=== PATIENT | female | born 1950 | race Caucasian/White ===

== ENCOUNTER → 2021-02-13 17:43 | Outpatient (CLI) | payer OTHER, SELFPAY ==
[2021-02-13 18:37] LABS: COVID19 -Nasal RAPID Negative (Negative)
== END ==
PROVIDERS: PCP Family Medicine; Visit Provider Nurse Practitioner
DX: R52 Pain, unspecified (principal); R53.83 Other fatigue; Z20.822 Contact with and (suspected) exposure to COVID-19
CPT/HCPCS: 87635

== ENCOUNTER → 2022-02-04 10:28 | Outpatient (CLI) | payer OTHER, SELFPAY ==
--- NOTE | 2022-02-04 10:33 | DI.MG.S_ITS ---
BILATERAL DIGITAL SCREENING MAMMOGRAM 3D/2D WITH CAD: 02/04/2022 CLINICAL: Routine screening. Comparison is made to exams dated: 07/02/2017 mammogram, 10/19/2005 mammogram, and 01/08/2004 mammogram - [facility]. Both breasts are heterogeneously dense, which may obscure small masses (category c / 51-75% glandular tissue). Current study was also evaluated with a Computer Aided Detection (CAD) system. No significant masses, calcifications, or other findings are seen in either breast. There has been no significant interval change. IMPRESSION: NEGATIVE There is no mammographic evidence of malignancy. A 1 year screening mammogram is recommended. Based on the Tyrer Cuzick model (a risk assessment model) the patient's lifetime risk is 5.8% and her 10 year risk is 4.3%. According to the ACR, ACS, and NCCN guidelines, an annual breast MRI exam along with mammogram is recommended if the patient's lifetime risk is 20% or greater. This exam was interpreted at Station ID: [id number]. NOTE: For mammograms, a report in lay terms will be sent to the patient. Approximately 15% of breast malignancies will not be visualized mammographically. In the management of a palpable breast mass, a negative mammogram must not discourage biopsy of a clinically suspicious lesion. Electronically Signed By: Juan Francisco Mehta M.D., jr/jairo:02/04/2022 12:42:53 letter sent: Normal Exam ACR BI-RADS Category 1: Negative [id number]
== END ==
PROVIDERS: PCP Family Medicine; Referring Provider Family Medicine; Visit Provider Family Medicine
DX: Z12.31 Encounter for screening mammogram for malignant neoplasm of breast (principal)
CPT/HCPCS: 77063; 77067

== ENCOUNTER → 2022-04-01 16:57 | Outpatient (CLI) | payer OTHER, SELFPAY ==
--- NOTE | 2022-04-01 16:59 | DI.RAD.S_ITS ---
PROCEDURE: XR KNEE RT 3V INDICATIONS: bilateral knee pain TECHNIQUE: 3 views of the knee were acquired. COMPARISON: [facility], , KNEE 3V RIGHT, 08/29/2015, 10:44. FINDINGS: Bones: No fractures or dislocations. Moderate tricompartmental osteoarthritis is seen most notably in medial femoral tibial compartment. No suspicious bony lesions. Soft tissues: No joint effusion. No suspicious soft tissue calcifications. IMPRESSION: Moderate tricompartmental osteoarthritis. No fracture or dislocation. No significant joint effusion. Dictated by: Rishi Godwin M.D. on 04/02/2022 at 8:21 Approved by: Rishi Godwin M.D. on 04/02/2022 at 8:28
--- NOTE | 2022-04-01 16:59 | DI.RAD.S_ITS ---
PROCEDURE: XR KNEE LT 3V INDICATIONS: bilateral knee pain TECHNIQUE: 3 views of the knee were acquired. COMPARISON: [facility], , KNEE 3V RIGHT, 08/29/2015, 10:44. FINDINGS: Bones: No fractures or dislocations. Jsct-df-bszzoykf tricompartmental osteoarthritis is seen most notably in medial femoral tibial compartment with joint space narrowing, subchondral sclerosis and marginal osteophyte formation. No suspicious bony lesions. Soft tissues: Small joint effusion. No suspicious soft tissue calcifications. IMPRESSION: Twee-hv-htcreucc tricompartmental osteoarthritis and small joint effusion. No fracture or dislocation. Dictated by: Rishi Godwin M.D. on 04/02/2022 at 8:28 Approved by: Rishi Godwin M.D. on 04/02/2022 at 8:28
== END ==
PROVIDERS: PCP Family Medicine; Referring Provider Family Medicine; Visit Provider Family Medicine
DX: M25.561 Pain in right knee (principal); M25.562 Pain in left knee; M25.462 Effusion, left knee; M17.0 Bilateral primary osteoarthritis of knee; G89.29 Other chronic pain
CPT/HCPCS: 73562

== ENCOUNTER → 2022-07-17 08:28 | Outpatient (CLI) | payer OTHER, SELFPAY ==
[2022-07-17 09:03] LABS: Add Manual Diff / Slide Review NO; Basophils Absolute Auto 0 /uL (0-100); Basophils Percent Auto 0.9 % (0-2); Eosinophils Absolute Auto 300 /uL (0-450); Eosinophils Percent Auto 8.4 % (2-4); Hematocrit 39.9 % (36-46); Hemoglobin 13.4 g/dL (12.0-16.0); Lymphocytes Absolute Auto 1500 /uL (1100-4500); Lymphocytes Percent Auto 39.4 % (25-40); Mean Corpuscular HGB Conc 33.5 % (30-36); Mean Corpuscular Hemoglobin 30.7 PG (26-34); Mean Corpuscular Volume 91.8 fL (80-100); Monocytes Absolute Auto 400 /uL (0-900); Neutrophils Absolute Auto 1600 /uL (1500-7000); Neutrophils Percent Auto 41.3 % (50-75); Platelet Count 238 X10^3/uL (150-400); Red Blood Cell Count 4.34 X10^6/uL (4.0-5.2); Red Cell Distribution Width 13.2 % (11.6-14.8); White Blood Cell Count 3.9 X10^3/uL (4.5-11.0)
[2022-07-17 09:46] LABS: Alanine Aminotransferase 17 IU/L (<35); Albumin Globulin Ratio 1.3 (1.0-2.8); Alkaline Phosphatase 73 U/L (38-126); Aspartate Aminotransferase 24 IU/L (14-36); BUN Creatinine Ratio 22.2 (6-22); Bilirubin Total 0.5 mg/dL (0.2-1.3); Blood Urea Nitrogen 14 mg/dL (7-17); Calcium 8.6 mg/dL (8.4-10.2); Carbon Dioxide 30 mmol/L (22-32); Chloride 102 mmol/L (98-107); Cholesterol 213 mg/dL (140-199); Estimated Glomerular Filt Rate > 60 mL/min (>60); Glucose 99 mg/dL (80-110); HDL Cholesterol 61 mg/dL (40-60); HEMOLYSIS < 15 (0-50); LDL Cholesterol Calculated 141 mg/dL (<100); Potassium 4.1 mmol/L (3.4-5.1); Sodium 140 mmol/L (137-145); Triglycerides 55 mg/dL (35-150)
[2022-07-21 16:20] LABS: Fecal Immunochemical Test Negative (Negative)
== END ==
PROVIDERS: PCP Family Medicine; Referring Provider Family Medicine; Visit Provider Family Medicine
DX: E78.5 Hyperlipidemia, unspecified (principal); Z12.11 Encounter for screening for malignant neoplasm of colon
CPT/HCPCS: 36415; 80053; 80061; 82274; 85025

== ENCOUNTER → 2023-03-11 16:44 | Outpatient (CLI) | payer OTHER, SELFPAY ==
[2023-03-11 17:08] LABS: Add Manual Diff / Slide Review NO; Basophils Absolute Auto 0 /uL (0-100); Basophils Percent Auto 0.6 % (0-2); Eosinophils Absolute Auto 300 /uL (0-450); Eosinophils Percent Auto 4.7 % (2-4); Hematocrit 36.5 % (36-46); Hemoglobin 12.7 g/dL (12.0-16.0); Lymphocytes Absolute Auto 1900 /uL (1100-4500); Lymphocytes Percent Auto 30.4 % (25-40); Mean Corpuscular HGB Conc 34.7 % (30-36); Mean Corpuscular Hemoglobin 32.2 PG (26-34); Mean Corpuscular Volume 92.9 fL (80-100); Monocytes Absolute Auto 500 /uL (0-900); Monocytes Percent Auto 7.5 % (3-14); Neutrophils Absolute Auto 3500 /uL (1500-7000); Neutrophils Percent Auto 56.8 % (50-75); Platelet Count 248 X10^3/uL (150-400); Red Blood Cell Count 3.93 X10^6/uL (4.0-5.2); Red Cell Distribution Width 13.8 % (11.6-14.8); White Blood Cell Count 6.2 X10^3/uL (4.5-11.0)
[2023-03-11 18:14] LABS: BUN Creatinine Ratio 33.3 (6-22); Blood Urea Nitrogen 24 mg/dL (7-17); Calcium 8.9 mg/dL (8.4-10.2); Carbon Dioxide 29 mmol/L (22-32); Chloride 104 mmol/L (98-107); Estimated Glomerular Filt Rate > 60 mL/min (>60); Glucose 94 mg/dL (80-110); HEMOLYSIS < 15 (0-50); Potassium 4.3 mmol/L (3.4-5.1); Sodium 138 mmol/L (137-145)
== END ==
PROVIDERS: PCP Family Medicine; Referring Provider Orthopaedic Surgery Adult Reconstructive Orthopaedic Surgery; Visit Provider Orthopaedic Surgery Adult Reconstructive Orthopaedic Surgery
DX: R73.9 Hyperglycemia, unspecified (principal); Z01.812 Encounter for preprocedural laboratory examination; Z01.818 Encounter for other preprocedural examination
CPT/HCPCS: 36415; 80048; 83036; 85025; 93005

== ENCOUNTER 2023-04-15 11:32 | Day surgery (SDC) | payer OTHER, SELFPAY ==
[2023-04-06 12:43] VITALS: BMI 20.2
[2023-04-15] VITALS (7 sets, daily range): BP systolic 103–142; BP diastolic 51–71; PULSE 62–67; RESP 12–17; TEMP 35.9–36.5; O2SAT 98–99; BMI 20.5
[2023-04-15] MEDS: MELOXICAM 7.5 MG TABLET PO (11:53)
--- NOTE | 2023-04-15 13:27 | PM.PREOP ---
Pre-operative Note Interval Note History & Physical reviewed/Exam performed by Physician: Yes Changes to H&P: No
--- NOTE | 2023-04-15 14:00 | DI.RAD.S_ITS ---
PROCEDURE: XR KNEE LT 1TO2V INDICATIONS: LEFT TOTAL KNEE TECHNIQUE: 2 view(s) of the knee acquired. COMPARISON: [facility] [place], CR, XR BONE LENGTH SCANOGRAM, 03/16/2023, 10:17. FINDINGS: Bones: Patient is status post knee joint arthroplasty. Hardware components are in expected positions. Visualized bony structures are intact. Soft tissues: Overlying postoperative changes are noted. IMPRESSION: Total knee arthroplasty with expected postsurgical change. Dictated by: Ruba Engle M.D. on 04/15/2023 at 17:17 Approved by: Ruba Engle M.D. on 04/15/2023 at 17:17
[2023-04-15] MEDS: CEFAZOLIN 2 GM/100 ML PREMIX 100 ML IV (14:15)
[2023-04-15] MEDS: TRANEXAMIC ACID 1,000 MG VIAL 1000 MG INJ (14:20)
[2023-04-15] MEDS: ROPIVACAINE/EPI/CLONIDINE/KET 50 ML SYRINGE INJ (14:30)
--- NOTE | 2023-04-15 14:36 | SUR.OPER ---
Supine on padded OR bed. Pillow under head, arms secured on padded armboards <90 degree abduction. Safety belt across torso. Non-operative leg secured with tape over blanket over lower leg. Operative leg secured in Trino positioner. Foam padded brace at thigh of operative leg.
--- NOTE | 2023-04-15 16:41 | P.OP_ITS ---
Operative Date/Time/Diagnoses Date of procedure: 04/15/23 Pre-op diagnosis: Left knee arthritis Post-op diagnosis: same Procedure & Clinicians Procedure: Left total knee arthroplasty Same procedure as scheduled: Yes Surgeon: Connor Ambrose Type Bar And Segment Assembler: Tay Peralta Anesthesia Type: Spinal, Sedation and Local Operative Notes Prosthetic devices, grafts, tissues, transplants, or devices: Perez 8 Narrow CR femur, D tibia, 13 MC polyetheylene, unresurfaced patella Estimated Blood Loss (mL): 150 Tourniquet time (min): 64 Procedure in detail: This 72-year-old female was seen in clinic and diagnosed with left knee arthritis arthritis. Risks and benefits of operative versus nonoperative management of his arthritis were discussed at length. She wished to proceed with surgery in the form of a total knee arthroplasty. She was met in the preoperative holding area the day of surgery. All questions were answered and risks and benefits were again discussed. Informed consent was signed. The surgical site was marked. She was brought back to the operating room and placed supine on the operating table. Spinal anesthesia was utilized. Tay Peralta was present throughout the entire procedure and his assistance was necessary for room set up, soft tissue retraction, wound closure. Without him the surgery would not have been possible. A time-out procedure was performed. Tranexamic acid and Ancef were administered prior to incision. Tourniquet was inflated and a incision was made centered over the patella and the medial 3rd of the tibial tubercle. The soft tissues were dissected and flaps were elevated. A medial parapatellar arthrotomy was utilized to gain access to the joint. An initial medial release was performed. The patella was everted and a lateral facetectomy was used to encourage appropriate tracking. Osteophytes around the periphery of the patella were removed. A limited lateral release was performed off of the lateral edge. The soft tissue over the anterior aspect of the distal femoral shaft was released to expose the notch point and left in place. Retractors were placed around the femur and the femur was brought into flexion. An intramedullary drill was used in an intramedullary guide was introduced in order to obtain mechanical axis alignment. The distal femoral cutting jig was set to 5? and a +0 cut was planned. The Ryan wing was used to check to ensure appropriate positioning of that cut. The cut was made and the saw was rerun over the sclerotic lateral cortex. The jig and pins were removed and the cruciate ligaments were released. The knee was hyperflexed and externally rotated to expose the tibia. Retractors were placed and the diaphysis of the tibia was accessed with an intramedullary guide. A intramedullary vasu was placed down the tibia and used to gauge a mechanical axis resection with the corresponding tibial slope for a medial congruent polyethylene. A 2 mm resection was planned off of the medial side. This was then shifted by 2 mm to give me a 4 mm resection. This was pinned in place and retractors were placed around the tibia protecting the MCL, popliteus, and patellar tendon. The tibia was cut and appeared to have resulted in minimal bone resection so I resected an additional 2 mm. A soft tissue tensioner was used to gauge the symmetry of the extension gap. This demonstrated tightness medially. I therefore placed the tibia back into flexion and exposed the posterior medial tibial plateau. I performed a posterior medial release. I returned to extension and reintroduced the tensioner. I found that it was now appropriately balanced between medial and lateral. I used a 12 mm spacer block and found that this fit appropriately. I therefore planned to perform a 12 mm flexion gap resection. Coming to flexion I introduced the measured resection guide for a 3 degree external rotation cut and marked this with a marker. I then used the soft tissue tensioner to apply equal tension to the medial and lateral sides and found that this gave me a reading of approximately 4? external rotation. I therefore sized the femur based off of this external rotation so that I would have a 12 mm flexion gap. I pinned it in place and sized it and found that a size 6 was appropriate. I placed that 4 in 1 block with threaded headed pins and checked the notch point with an Ryan wing. I was satisfied. I cut the anterior and posterior cortices as well as the chamfers. The 4 in 1 block and all retractors were removed. I exposed the tibia and sized it for a size D left-sided tibial tray. I placed the corresponding trials to the cuts I had made and trial. I found that it had full extension, appropriate medial to lateral laxity in extension, good stability in flexion, and minimal lift-off with external and internal rotation in flexion. Being satisfied with this trialing I then moved towards cementation. The tibia and femur were copiously washed. Bone plugs were placed in the femur and tibia. The tibia had a lap inserted down the canal. I placed cement down the tibia and on the cut tibial surface after drying it with a lap. I placed the tibial component and impacted it twice, removing cement in between each round of impaction. I then again washed the femur, placed cement on the femur including the posterior condyles, and inserted the femoral component. I used a 12 mm trial and brought the knee into full extension and applied axial pressure while the cement dried. While the cement was drying I injected a dilute mixture of ropivacaine epinephrine clonidine and Toradol throughout the wound including performing a adductor canal block distally in the femur. I also put a dilute mixture of Betadine and peroxide into the soft tissues and allowed it to soak for 3 minutes. After cement was dry the tourniquet was let down and hemostasis was achieved. I trialed with the 12 mm component and found it to be slightly loose in flexion. Therefore inserted the 13 mm Debra. When trialing this I found it to have appropriate patellar tracking, extension flexion balancing, coronal plane balancing, and passive knee range of motion. Being satisfied with this I i nserted a 13 mm medial congruent polyethylene. This was locked in place into the dovetail in the tibial component. I inspected for excess dried cement and removed some with an osteotome. I closed the wound using a combination of 1 Vicryl to close the apex of the arthrotomy, interrupted 1. Vicryl in the arthrotomy, a double-armed 2. Stratafix in the arthrotomy, and Stratafix and Monocryl in the subcutaneous tissues and skin. Dermabond and an Aquacel dressing were applied. The patient was transferred off the operating room table and brought to the PACU on a stretcher. Post-operative Plan for aftercare: Weightbearing as tolerated Aspirin 81 mg twice per day for VTE prophylaxis Discharge home likely tomorrow morning
[2023-04-15] MEDS: IBUPROFEN 600 MG TABLET PO (17:15)
[2023-04-15] MEDS: ACETAMINOPHEN 325 MG TABLET 650 MG PO (17:16)
[2023-04-15] MEDS: LACTATED RINGERS 1,000 ML 100 ML IV (17:17)
--- NOTE | 2023-04-15 18:20 | PM.DS.1 ---
History of Present Illness History of Present Illness Date Patient Seen: 04/15/23 Chief complaint: Left TKA *OPB* Narrative: Patient seen postop following primary total knee. Reports minimal pain. Wants to go home. Ambulated approximately 200 feet from room 211 out to the stairs, up and down 3 steps, and back to room 211. I walked with her with a gait belt and provided zero assistance. I counseled her on using her right leg when going up and down stairs and discussed her plans for getting up and down the stairs to enter her house with her and her family. Discharge Providers Provider Discharge Date: 04/15/23 Primary care physician: Tay Peoples DO Consults: 04/06/23 13:35 Consult to Anesthesiology Routine Comment: Consulting Provider: Anesthesiologist Reason for consultation: PAC courtesy re: Abnormal pre-op EKG 04/15/23 06:00 Consult to Anesthesiology Routine Comment: Consulting Provider: Anesthesiologist Reason for consultation: Regional block for post operative pain control 04/15/23 16:40 Consult to Discharge Planning Routine Comment: Consult to Physical Therapy Evaluate & Treat Comment: Physician Instructions: postop TKA protocol Discharge provider: Connor Ambrose MD Summary Hospital Course Discharge Diagnosis: Status post left total knee Hospital Course: Ambulated without assistance including up and down 3 stairs following primary total knee. Voiding. Pain controlled. Mentating normally. Time Spent with Patient Time spent: Greater than 30 minutes Exam Vital Signs (past 8 hours): - 04/15/23 12:06 04/15/23 16:10 04/15/23 16:16 Temperature 97.7 F 97.2 F L 97.2 F L Pulse Rate 67 62 65 Respiratory Rate 17 15 15 Blood Pressure 142/71 H 114/51 L 106/57 L Pulse Oximetry 99 99 98 Oxygen Delivery Method Room Air Room Air Room Air Oxygen Flow Rate 04/15/23 16:22 04/15/23 16:23 04/15/23 16:28 Temperature 97.3 F L 97.1 F L Pulse Rate 64 64 Respiratory Rate 13 12 Blood Pressure 114/53 L 103/52 L Pulse Oximetry 99 99 Oxygen Delivery Method Room Air Room Air Oxygen Flow Rate 04/15/23 16:45 Temperature 96.7 F L Pulse Rate 63 Respiratory Rate 16 Blood Pressure 119/58 L Pulse Oximetry 98 Oxygen Delivery Method Oxygen Flow Rate 0 Oxygen Delivery Method Room Air Oxygen Flow Rate 0 Narrative Exam Narrative: LLE: Dressing CDI. Flexes/extends hallux+ankle. Toes WWP. Fires quad. ROM 0-70 Objective Imaging left knee xray: My impression: Appropriately positioned total knee PFSH Medical History (Updated 04/06/23 @ 13:09 by Amber Charles RN) Osteoarthritis UTI (urinary tract infection) (~04/04/23) Hx of ectopic Somatic dysfunction of lower extremity Sun-damaged skin Hyperlipidemia Chronic thumb pain, bilateral Bilateral knee pain Surgical History (Updated 04/06/23 @ 13:09 by Amber Charles RN) Hx of blepharoplasty Hx of varicose vein stripping Social History household members: none Smoking Status: Never smoker alcohol intake: current Discharge Assessment & Plan Assessment and Plan Assessment: Status post left total knee Plan of Treatment: DC home WBAT ASA 81 BID Followup two weeks for wound check Discharge Plan Discharge Plan Patient Disposition: Home Provider Discharge Comment: Personally completed stair training with patient. Ambulated approximately 200 feet down the whaley and back and walked up 3 steps and back down while I walked with her with a gait belt. I did not assist her at any point in the process. Detailed discharge instructions have previously been provided in the patient's joints booklet. Discharge orders & Medications Discharge Orders: Discharge (Order); Ordered 04/15/23 Ordered By: Connor Ambrose Prescriptions: New meloxicam 15 mg tablet 15 mg PO DAILY 30 Days Qty: 30 0RF aspirin 81 mg capsule 81 mg PO BID 45 Days Qty: 90 0RF acetaminophen 500 mg tablet 1,000 mg PO Q8HR 45 Days Qty: 240 0RF gabapentin 300 mg capsule 300 mg PO TID PRN (Reason: Nerve pain) 30 Days Qty: 90 0RF Discontinued acetaminophen 500 mg Tablet 1,000 mg PO DAILY PRN (Reason: Pain) ibuprofen 200 mg Tablet 200 mg PO Q6H PRN (Reason: Pain) Follow up/Referrals: Connor Ambrose MD [Physician] - Tay Peoples DO [Primary Care Provider] - Diet/Activity/Treatments Diet: Diet as Tolerated Cold/Heat Therapy: Maintain ice on surgical site Skin/Wound/Dressing Care Dressing: Maintain dressing until followup Visit Report/Discharge Packet Instructions: DI for Knee Replacement, DI for Prescription Opioid Use Stand Alone Forms: Patient Portal/API Discharge Data Primary Care Provider: Tay Peoples Attending Provider: Connor Ambrose VTE Deep Vein Thrombosis/Pulmonary Embolism Present on Admission: No
--- NOTE | 2023-04-15 18:34 | PC.NURSE ---
Assess- Patient is being discharged home, she has worked with , ambulating in the halls and doing stairs. She was medicated with ibuprofen and tylenol for a pain of 5/10. Daughter in room and will take patient back home to [facility]. Dressing with aqualcel and maria fernanda wrap.
== END 2023-04-15 19:36 | disposition home or self-care (01) ==
LOC: OR 11:34 → AC 11:35
PROVIDERS: PCP Family Medicine; Referring Provider Orthopaedic Surgery Adult Reconstructive Orthopaedic Surgery; Visit Provider Orthopaedic Surgery Adult Reconstructive Orthopaedic Surgery
PROC: 0SRD0JZ Replacement of Left Knee Joint with Synthetic Substitute, Open Approach (ICD-10-PCS; CPT 27447; principal; 2023-04-15 13:45)
DX: M17.12 Unilateral primary osteoarthritis, left knee (principal)
CPT/HCPCS: 27447; 73560; C1776; J0690; J2250; J2704

== ENCOUNTER → 2023-05-27 15:00 | Outpatient (CLI) | payer OTHER, SELFPAY ==
[2023-04-15 16:42] VITALS: BMI 20.5
[2023-05-27 17:02] LABS: Add Manual Diff / Slide Review NO; Basophils Absolute Auto 0 /uL (0-100); Basophils Percent Auto 0.7 % (0-2); Eosinophils Absolute Auto 200 /uL (0-450); Eosinophils Percent Auto 3.4 % (2-4); Hematocrit 35.4 % (36-46); Hemoglobin 12.2 g/dL (12.0-16.0); Lymphocytes Absolute Auto 1600 /uL (1100-4500); Lymphocytes Percent Auto 27.6 % (25-40); Mean Corpuscular HGB Conc 34.5 % (30-36); Mean Corpuscular Hemoglobin 33.6 PG (26-34); Mean Corpuscular Volume 97.3 fL (80-100); Monocytes Absolute Auto 400 /uL (0-900); Monocytes Percent Auto 7.3 % (3-14); Neutrophils Absolute Auto 3500 /uL (1500-7000); Platelet Count 290 X10^3/uL (150-400); Red Blood Cell Count 3.64 X10^6/uL (4.0-5.2); Red Cell Distribution Width 12.7 % (11.6-14.8); White Blood Cell Count 5.7 X10^3/uL (4.5-11.0)
[2023-05-27 17:03] LABS: Reticulocyte Count, Percent 0.8 % (1.1-2.6)
[2023-05-27 17:30] LABS: BUN Creatinine Ratio 34.5 (6-22); Blood Urea Nitrogen 20 mg/dL (7-17); Calcium 9.2 mg/dL (8.4-10.2); Carbon Dioxide 30 mmol/L (22-32); Chloride 100 mmol/L (98-107); Estimated Glomerular Filt Rate > 60 mL/min (>60); Glucose 97 mg/dL (80-110); HEMOLYSIS < 15 (0-50); Potassium 4.1 mmol/L (3.4-5.1); Sodium 137 mmol/L (137-145)
[2023-05-27 17:32] LABS: HEMOLYSIS < 15 (0-50); Iron 48 ug/dL (37-170)
[2023-05-27 17:42] LABS: Percent Iron Saturation 15 % (15-50); Total Iron Binding Capacity 331 ug/dL (265-497); Transferrin 284 mg/dL (206-381)
[2023-05-27 18:04] LABS: Ferritin 82 ng/mL (11-264)
== END ==
PROVIDERS: PCP Family Medicine; Referring Provider Family Medicine; Visit Provider Family Medicine
DX: R42 Dizziness and giddiness (principal)
CPT/HCPCS: 36415; 80048; 82728; 83540; 83550; 85025; 85045

== ENCOUNTER → 2023-07-19 16:28 | Outpatient (CLI) | payer OTHER, SELFPAY ==
[2023-04-15 16:42] VITALS: BMI 20.5
[2023-07-19 18:26] LABS: Add Manual Diff / Slide Review NO; Basophils Absolute Auto 0 /uL (0-100); Basophils Percent Auto 0.7 % (0-2); Eosinophils Absolute Auto 100 /uL (0-450); Eosinophils Percent Auto 2.3 % (2-4); Hematocrit 37.1 % (36-46); Hemoglobin 12.8 g/dL (12.0-16.0); Lymphocytes Absolute Auto 1600 /uL (1100-4500); Lymphocytes Percent Auto 36.9 % (25-40); Mean Corpuscular HGB Conc 34.4 % (30-36); Mean Corpuscular Hemoglobin 32.3 PG (26-34); Mean Corpuscular Volume 93.8 fL (80-100); Monocytes Absolute Auto 400 /uL (0-900); Monocytes Percent Auto 9.1 % (3-14); Neutrophils Absolute Auto 2200 /uL (1500-7000); Platelet Count 246 X10^3/uL (150-400); Red Blood Cell Count 3.96 X10^6/uL (4.0-5.2); Red Cell Distribution Width 12.7 % (11.6-14.8); White Blood Cell Count 4.3 X10^3/uL (4.5-11.0)
[2023-07-19 18:41] LABS: BUN Creatinine Ratio 32.8 (6-22); Blood Urea Nitrogen 19 mg/dL (7-17); Calcium 8.7 mg/dL (8.4-10.2); Carbon Dioxide 27 mmol/L (22-32); Chloride 101 mmol/L (98-107); Estimated Glomerular Filt Rate > 60 mL/min (>60); Glucose 102 mg/dL (80-110); HEMOLYSIS < 15 (0-50); Potassium 3.9 mmol/L (3.4-5.1); Sodium 138 mmol/L (137-145)
[2023-07-19 18:50] LABS: Prealbumin 17.1 mg/dL (17.6-36.0)
[2023-07-19 19:45] LABS: Vitamin D 25 Hydroxy (D3) 20.5 ng/mL (30.0-100.0)
[2023-07-21 12:09] LABS: x Labcorp Estim. Avg Glu (eAG) 108 mg/dL (.); x Labcorp Hemoglobin A1c 5.4 % (4.8-5.6)
== END ==
LOC: LAB 16:29
PROVIDERS: PCP Family Medicine; Referring Provider Orthopaedic Surgery Adult Reconstructive Orthopaedic Surgery; Visit Provider Orthopaedic Surgery Adult Reconstructive Orthopaedic Surgery
DX: E55.9 Vitamin D deficiency, unspecified (principal); R73.9 Hyperglycemia, unspecified; R77.0 Abnormality of albumin; Z01.812 Encounter for preprocedural laboratory examination
CPT/HCPCS: 36415; 80048; 82040; 82306; 83036; 84134; 85025

== ENCOUNTER → 2023-09-15 15:54 | Outpatient (CLI) | payer OTHER, SELFPAY ==
[2023-04-15 16:42] VITALS: BMI 20.5
[2023-09-15 17:14] LABS: Bilirubin Urine UA NEGATIVE (NEGATIVE); Color Urine UA YELLOW; Glucose Urine UA NEGATIVE (Negative); Ketones Urine UA NEGATIVE (NEGATIVE); Leukocyte Esterase Urine UA 3+ (NEGATIVE); Nitrite Urine UA POSITIVE (Negative); Occult Blood Urine UA 2+ (Negative); Protein Urine UA NEGATIVE (Negative); Specific Gravity Urine UA <=1.005 (1.000-1.035)
[2023-09-15 17:54] LABS: Appearance Urine UA SL CLOUDY
[2023-09-15 18:03] LABS: Bacteria Urine Many (>30); Culture Indicated Urine Specimen Cultured; RBC Urine 1-5/HPF (0-5/HPF); Squamous Epithelial Cell Urine None Seen (0-5/HPF); Urine Volume 10mL (spun); WBC Urine 30-100/HPF (0-5/HPF)
== END ==
PROVIDERS: PCP Family Medicine; Referring Provider Nurse Practitioner; Visit Provider Nurse Practitioner
DX: R30.0 Dysuria (principal)
CPT/HCPCS: 81001; 87077; 87086; 87186

== ENCOUNTER → 2023-09-25 14:16 | Outpatient (CLI) | payer OTHER, SELFPAY ==
[2023-04-15 16:42] VITALS: BMI 20.5
== END ==
PROVIDERS: PCP Family Medicine; Visit Provider Physician Assistant Medical
DX: R30.0 Dysuria (principal)
CPT/HCPCS: 87077; 87086; 87186

== ENCOUNTER → 2023-11-23 10:21 | Outpatient (CLI) | payer OTHER, SELFPAY ==
[2023-04-15 16:42] VITALS: BMI 20.5
[2023-11-23 13:30] LABS: Bacteria Urine Few (2-10); Culture Indicated Urine Specimen Cultured; RBC Urine None Seen (0-5/HPF); Squamous Epithelial Cell Urine None Seen (0-5/HPF); Urine Volume 10mL (spun); WBC Urine >100/HPF (0-5/HPF); White Blood Cell Casts Urine 1-5/LPF
== END ==
PROVIDERS: PCP Family Medicine; Visit Provider Physician Assistant
DX: R35.0 Frequency of micturition (principal); R30.0 Dysuria
CPT/HCPCS: 81015; 87086

== ENCOUNTER → 2023-12-30 07:32 | Outpatient (CLI) | payer OTHER, SELFPAY ==
[2023-04-15 16:42] VITALS: BMI 20.5
[2023-12-30 09:23] LABS: Cholesterol 224 mg/dL (140-199); HDL Cholesterol 63 mg/dL (40-60); LDL Cholesterol Calculated 149 mg/dL (<100); Triglycerides 60 mg/dL (35-150)
== END ==
PROVIDERS: PCP Family Medicine; Referring Provider Physician Assistant; Visit Provider Physician Assistant
DX: E78.5 Hyperlipidemia, unspecified (principal); R53.83 Other fatigue
CPT/HCPCS: 36415; 80061

== ENCOUNTER → 2024-01-27 11:57 | Outpatient (CLI) | payer OTHER, SELFPAY ==
[2023-04-15 16:42] VITALS: BMI 20.5
--- NOTE | 2024-01-27 11:59 | DI.US.S_ITS ---
LIMITED ULTRASOUND OF LEFT BREAST: 01/27/2024 CLINICAL: Palpable left breast lump and focal pain. Comparison is made to exams dated: 01/27/2024 mammogram, 02/04/2022 mammogram, 07/02/2017 mammogram, 10/19/2005 mammogram, and 01/08/2004 mammogram - [facility]. Color flow and real-time ultrasound of the left breast 9 o'clock region were performed. Nelson scale images of the real-time examination were reviewed. There is an area of fibroglandular tissue with trace edema in the left breast at 9 o'clock anterior depth with increased vascularity. There is associated mild skin thickening. This correlates to the reported pain. No focal mass or cyst. IMPRESSION: PROBABLY BENIGN The area of hypervascular, edematous tissue in the left breast is probably mastitis and cellulitis, and is probably benign. There is no abnormality seen in the right breast to correspond with the palpable abnormality at 10 o'clock. Clinical follow up, possible antibiotic course, and a follow-up left ultrasound following treatment in 1 month is recommended. Findings and recommendations were conveyed to the patient at time of exam. This exam was interpreted at Station ID: [id number]. Electronically Signed By: Ketty kelley/:01/27/2024 13:31:46 letter sent: Followup Recommended Ultrasound BI-RADS: 3 Probably benign
--- NOTE | 2024-01-27 11:59 | DI.MG.S_ITS ---
BILATERAL DIGITAL DIAGNOSTIC MAMMOGRAM 3D/2D: 01/27/2024 CLINICAL: Palpable left breast lump. Comparison is made to exam dated: 02/04/2022 mammogram - [facility]. Both breasts are heterogeneously dense, which may obscure small masses (category c / 51-75% glandular tissue). There is an indeterminate area of trabecular, possible skin, thickening in the right breast in the inner aspect that correlates with reported redness and pain. No significant masses, calcifications, or other findings are seen in either breast. Specifically, no finding to correspond to the patient's 10:00 focal palpable abnormality. Mammograms are otherwise stable. IMPRESSION: INCOMPLETE: NEEDS ADDITIONAL IMAGING EVALUATION Tissue and skin thickening in the medial left breast corresponds to redness and pain, possibly due to decreased compression in the area. There is no focal abnormality seen in the right breast to correspond with the palpable abnormality at 10 o'clock. Ultrasound is recommended for full evaluation of this area. This was performed immediately following this exam. Bilateral mammograms are otherwise stable. Based on the Tyrer Cuzick model (a risk assessment model) the patient's lifetime risk is 5.1% and her 10 year risk is 4.6%. According to the ACR, ACS, and NCCN guidelines, an annual breast MRI exam along with mammogram is recommended if the patient's lifetime risk is 20% or greater. This exam was interpreted at Station ID: [id number]. NOTE: For mammograms, a report in lay terms will be sent to the patient. Approximately 15% of breast malignancies will not be visualized mammographically. In the management of a palpable breast mass, a negative mammogram must not discourage biopsy of a clinically suspicious lesion. Electronically Signed By: Ketty kelley/:01/27/2024 12:50:24 ACR BI-RADS Category 0: Incomplete [id number]
== END ==
PROVIDERS: PCP Family Medicine; Referring Provider Physician Assistant; Visit Provider Physician Assistant
DX: R92.2 Inconclusive mammogram (principal); N63.42 Unspecified lump in left breast, subareolar; R92.333 Mammographic heterogeneous density, bilateral breasts
CPT/HCPCS: 76642; 77066; G0279

== ENCOUNTER → 2024-05-30 09:39 | Outpatient (CLI) | payer OTHER, SELFPAY ==
[2023-04-15 16:42] VITALS: BMI 20.5
== END ==
PROVIDERS: PCP Family Medicine; Visit Provider Physician Assistant
DX: R30.0 Dysuria (principal)
CPT/HCPCS: 87086